=== PATIENT | female | born 1970 | race African-American/Black ===

== ENCOUNTER 2016-12-03 10:44 | Observation (INO) | payer BC ==
[~2016-12-03] VITALS: Ht 152.4 cm; Wt 74.5 kg
[~2016-12-03 10:44] MED LIST: AMOXICILLIN500 MG PO; AMOXICILLIN875 MG PO; ATIVAN1 MG PO; BACTRIM,SEPT1 TABLET PO; CYANOCOBAL1000 MCG/2 IM; CYMBALTA30 MG PO; DIFLUCAN150 MG PO; ELAVIL25 MG PO; ERGOCALCIF50000 UNIT PO; FERRLECIT62.5 MG/1 IV; HYDROCHLOROTHIA25 MG PO; HYDROCODON-ACE1 EAC7 PO; KADIAN10 MG PO; KLONOPIN0.5 M1 PO; KLONOPIN1 MG PO; MOTRIN800 MG PO; OXYCODONE-ACET1 EACH PO; OXYCODONE-APAP1 EAC6 PO; PERCOCET 7.51 TABLET PO; PRISTIQ50 MG PO; TOPAMAX100 MG PO; TRAZODONE HCL50 MG PO; TYLENOL WITH C1 EACH PO; XANAX0.5 MG PO; ZYBAN 150 MG T150 MG PO
[2016-12-03] MEDS ORDERED: MICRO-K10 ME2 PO (11:55)
[2016-12-03 12:34] LABS: HEMATOCRIT 37.4 % (36.0-46.0); MCHC 33.7 G/DL (30.0-36.0); MEAN PLAT.VOLUME 10.2 uM^3 (9.5-12.4); PLATELET COUNT 296 K/uL (156-360); RBC DIS.WIDTH-CV 12.9 % (11.8-14.6); RBC DIS.WIDTH-SD 39.8 % (39-53); RED BLOOD COUNT 4.35 M/uL (3.80-5.20); WHITE BLOOD COUNT 5.1 K/uL (4.1-10.2)
[2016-12-03 12:47] LABS: CHLORIDE 102 mEq/L (99-109); POTASSIUM 4.9 mEq/L (3.7-5.4); SODIUM 137 mEq/L (136-147)
[2016-12-03 12:48] LABS: GLUCOSE 84 mg/dL (70-99)
[2016-12-03 12:50] LABS: ANION GAP 12 MEQ/L (2-14)
[2016-12-03 12:52] LABS: GFR ESTIMATE (CALCULATED) > 59 mL/min/
[2016-12-03 12:53] LABS: UREA NITROGEN (BUN) 14 mg/dL (9-23)
[2016-12-03 12:57] LABS: TROP-I INTERPRETATION NEGATIVE; TROPONIN-I < 0.01 ng/mL (0.0-0.30)
[2016-12-03] MEDS ORDERED: LIDOCAINE HCL35 GM TP (14:26)
[2016-12-03] MEDS ORDERED: MORPHINE SULFAT15 M1 PO (14:26)
[2016-12-03] MEDS ORDERED: ERGOCALCIF50000 UNIT PO (14:27)
[2016-12-03 18:13] VITALS: BP 121/80
[2016-12-03 21:17] LABS: TROP-I INTERPRETATION NEGATIVE; TROPONIN-I < 0.01 ng/mL (0.0-0.30)
[2016-12-04 00:22] VITALS: BP 112/60
[2016-12-04 04:00] VITALS: BP 126/68
[2016-12-04 06:31] LABS: HDL CHOLESTEROL 52 MG/DL (Desirable>=50); LDL CHOLESTEROL 92 mg/dL (Desirable<100); NON-HDL CHOLESTEROL 107 mg/dL (Desirable<160); TOTAL CHOLESTEROL 159 mg/dL (Desirable<200); TRIGLYCERIDES 74 MG/DL (Normal: <150)
[2016-12-04 07:11] LABS: Estimated Average Glucose 77 mg/dL (70-123)
[2016-12-04 07:16] LABS: HEMOGLOBIN A1c (GLYCOHEMOGLOB) 4.3 % HGB (Below 5.7)
[2016-12-04 08:16] VITALS: BP 109/73
[2016-12-04 10:00] LABS: TROP-I INTERPRETATION NEGATIVE; TROPONIN-I < 0.01 ng/mL (0.0-0.30)
[2016-12-04 12:04] VITALS: BP 110/70
[2016-12-04] MEDS ORDERED: PROTONIX40 MG PO (15:26)
[2016-12-04 15:59] VITALS: BP 125/77
[2016-12-04 20:32] VITALS: BP 113/72
[2016-12-05 05:20] VITALS: BP 111/73
[2016-12-05 08:07] VITALS: BP 115/72
[2016-12-05] MEDS ORDERED: BACLOFEN10 MG PO (11:27)
[2016-12-05 11:56] VITALS: BP 115/78
== END 2016-12-05 13:22 | disposition home or self-care (01) ==
LOC: EME 10:44 → EDOF 14:05 → 5WEST 15:54
PROVIDERS: Hospitalist; Internal Medicine
DX: R07.9 Chest pain, unspecified (principal); G51.3 Clonic hemifacial spasm; R10.13 Epigastric pain; M25.512 Pain in left shoulder; M79.642 Pain in left hand; R11.0 Nausea; K21.9 Gastro-esophageal reflux disease without esophagitis; I10 Essential (primary) hypertension; I69.354 Hemiplegia and hemiparesis following cerebral infarction affecting left non-dominant side; E11.9 Type 2 diabetes mellitus without complications; E66.9 Obesity, unspecified; Z68.32 Body mass index [BMI] 32.0-32.9, adult; Z98.84 Bariatric surgery status; J45.909 Unspecified asthma, uncomplicated; J01.90 Acute sinusitis, unspecified; F32.9 Major depressive disorder, single episode, unspecified; Z79.891 Long term (current) use of opiate analgesic; Z88.5 Allergy status to narcotic agent; Z82.49 Family history of ischemic heart disease and other diseases of the circulatory system; Z83.3 Family history of diabetes mellitus
CPT/HCPCS: 70551; 71020; 80048; 80061; 83036; 84484; 85027; 93005; 99281; 99285; G0378; J1650; J1885; J2270

== ENCOUNTER 2017-09-03 08:15 | Emergency (ER) | payer BC, OTHER ==
[~2017-09-03] VITALS: Ht 152.4 cm; Wt 70.5 kg
[~2017-09-03 08:15] MED LIST changes: +BACLOFEN10 MG PO; +LIDOCAINE HCL35 GM TP; +MICRO-K10 ME2 PO; +MORPHINE SULFAT15 M1 PO; +PROTONIX40 MG PO
[2017-09-03 09:20] LABS: EOSINOPHIL (%) 0.8 % (0-5); EOSINOPHIL COUNT 0.1 K/uL (0-0.3); IMMATURE GRANULOCYTE (%) 0.3 % (0.0-0.7); INSTRUMENT ABS NEUTROPHIL CT 5.2 K/uL; MCH 28.1 PG (29.0-34.0); MCHC 32.3 G/DL (30.0-36.0); MEAN PLAT.VOLUME 10.2 uM^3 (9.5-12.4); MONOCYTE (%) 5.8 % (3-12); MONOCYTE COUNT 0.5 K/uL (0-0.8); NEUTROPHIL (%) 66.8 % (45-76); NEUTROPHIL COUNT 5.2 K/uL (1.8-6.4); PLATELET COUNT 291 K/uL (156-360); RBC DIS.WIDTH-CV 15.5 % (11.8-14.6); RBC DIS.WIDTH-SD 49.2 % (39-53); RED BLOOD COUNT 4.94 M/uL (3.80-5.20); WHITE BLOOD COUNT 7.8 K/uL (4.1-10.2)
[2017-09-03 09:28] LABS: CHLORIDE 108 mEq/L (99-109); POTASSIUM 4.2 mEq/L (3.7-5.4); SODIUM 139 mEq/L (136-147)
[2017-09-03 09:29] LABS: GLUCOSE 90 mg/dL (70-99)
[2017-09-03 09:31] LABS: ANION GAP 8 MEQ/L (2-14)
[2017-09-03 09:33] LABS: GFR ESTIMATE (CALCULATED) > 59 mL/min/
[2017-09-03 09:34] LABS: UREA NITROGEN (BUN) 23 mg/dL (9-23)
[2017-09-03] MEDS ORDERED: FIORICET 50-301 EACH PO (10:30)
[2017-09-03 10:50] VITALS: BP 139/89
== END 2017-09-03 10:58 | disposition home or self-care (01) ==
LOC: EME 08:15
PROVIDERS: Emergency Medicine
DX: G43.909 Migraine, unspecified, not intractable, without status migrainosus (principal); G89.29 Other chronic pain; K21.9 Gastro-esophageal reflux disease without esophagitis; J45.909 Unspecified asthma, uncomplicated; I10 Essential (primary) hypertension; F41.9 Anxiety disorder, unspecified; F32.9 Major depressive disorder, single episode, unspecified; F17.200 Nicotine dependence, unspecified, uncomplicated; Z86.73 Personal history of transient ischemic attack (TIA), and cerebral infarction without residual deficits; Z87.442 Personal history of urinary calculi; Z88.8 Allergy status to other drugs, medicaments and biological substances
CPT/HCPCS: 80048; 85025; 99281; 99284; J1885; J2765; J7030

== ENCOUNTER → 2017-10-24 | Outpatient (CLI) | payer BC, OTHER ==
[~2017-10-24] MED LIST changes: +FIORICET 50-301 EACH PO
[2017-10-24 17:40] LABS: APPEARANCE CLEAR/COLORLESS; RED CELL COUNT 73 /MM^3 (0-1); RED CELL DILUTION 1; WBC DILUTION 1; WHITE CELL RAW COUNT 6
[2017-10-24 17:41] LABS: WHITE CELL COUNT 3 /MM^3 (0-5)
[2017-10-24 18:54] LABS: CSF EOSINOPHILS ND % (0-25); MONONUCLEAR WBC'S ND % (50-90); POLYNUCLEAR WBC'S ND % (0-3)
[2017-10-24 18:58] LABS: APPEARANCE (RECHECK) CLEAR/COLORLESS; CSF TUBE NUMBER (RECHECK) TUBE #1; RED CELL DILUTION 1
[2017-10-24 18:59] LABS: RED CELL COUNT (RECHECK) 0 /MM^3 (0-1)
== END | disposition home or self-care (01) ==
LOC: RAD 15:00
PROVIDERS: Physician Assistant
PROC: 009U3ZZ Drainage of Spinal Canal, Percutaneous Approach (ICD-10-PCS; principal; 2017-10-24)
DX: R90.82 White matter disease, unspecified (principal)
CPT/HCPCS: 62270; 77003; 82040 90; 82042 90; 82784 90; 82945; 83916 90; 84157; 86617 90; 86618 90; 89051

== ENCOUNTER 2017-11-19 09:24 | Emergency (ER) | payer OTHER ==
[~2017-11-19] VITALS: Ht 152.4 cm; Wt 72.3 kg
[2017-11-19 09:42] VITALS: BP 128/90
== END 2017-11-19 12:42 | disposition left against medical advice (07) ==
LOC: EME 09:24
DX: M54.9 Dorsalgia, unspecified (principal); Z53.21 Procedure and treatment not carried out due to patient leaving prior to being seen by health care provider
CPT/HCPCS: 87502